=== PATIENT | female | born 1960 | race American Indian/Alaskan Native ===

== ENCOUNTER 2019-02-20 09:23 | Emergency (ER) | payer OTHER ==
[2019-02-20 09:34] VITALS: RESP 18; TEMP 99; O2SAT 98; BMI 36.3
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
[2019-02-20 13:11] VITALS: BP 158/92; PULSE 80
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
== END 2019-02-20 13:00 | disposition home or self-care (01) ==
LOC: H.ER 09:23
DX: S80.00XA Contusion of unspecified knee, initial encounter (principal); S16.1XXA Strain of muscle, fascia and tendon at neck level, initial encounter; S79.911A Unspecified injury of right hip, initial encounter; M79.7 Fibromyalgia; V74.6XXA Passenger on bus injured in collision with heavy transport vehicle or bus in traffic accident, initial encounter